=== PATIENT | male | born 1995 | race Hispanic/Latino ===

== ENCOUNTER 2019-09-07 17:57 | Emergency (ER) | payer OTHER, SELFPAY ==
[2019-09-07 18:00] VITALS: BP 150/83; PULSE 67; RESP 16; TEMP 36.2; O2SAT 96; BMI 24.9
--- NOTE | 2019-09-07 19:07 | ED.VISSUMM ---
- ER Visit Summary Date of Service: 09/07/19 Chief Complaint: [Laceration to left index finger] History of Present Illness: The patient is a 24 M [presents to the emergency department after lacerating his finger while at work today. 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 Patient is right-hand dominant. Patient is up-to-date on tetanus.] Physical Examination: [Left hand-patient has a 2 cm laceration over the dorsum of the base of the proximal phalanx of the index finger. It does not appear to involve area over the extensor tendon. He has normal flexion extension of the digit at the MCP, DIP and PIP joints. He is neurovascular intact. Strength checked against resistance and he has good strength.] Test Results: [None indicated] Emergency Department Course and Treatment: [Laceration repair-wound sterilely draped and prepped. Wound cleansed with Shur-Clens and irrigated with copious saline. Using 1% lidocaine total 2 cc used anesthetize the area.] Wound cleansed with Shur-Clens and irrigated with copious saline. Using 5-0 nylon a total of 3 single ruptured sutures placed with good wound edge approximation. Patient tolerated procedure well. Treatment Plan: [Follow-up with corporate care in 10 days for suture removal. Patient advised to return if increasing pain, redness, swelling, or conditions worsen anyway.] Disposition: [Discharged home in stable condition] Impression: [Laceration left index fingers 2 cm-simple repair] This note was generated with [employer] dictation software. It may contain incorrect words, spelling, and punctuation that were not noted in review of the chart prior to signing ED Disposition - Plan for ED Patient: Referrals: NOT,DEFINED [Primary Care Provider] -
--- NOTE | 2019-09-07 19:10 | ED.DEP ---
ED Disposition - Plan for ED Patient: Instructions: LACERATION, Hand Referrals: NOT,DEFINED [Primary Care Provider] - [facility] [GROUP OF PHYSICIANS] - 10 Day for suture removal
== END 2019-09-07 19:33 | disposition home or self-care (01) ==
PROVIDERS: Emergency Provider Emergency Medicine
DX: S61.211A Laceration without foreign body of left index finger without damage to nail, initial encounter (principal); W26.0XXA Contact with knife, initial encounter; Y93.G1 Activity, food preparation and clean up; Y92.9 Unspecified place or not applicable; Y99.0 Civilian activity done for income or pay
CPT/HCPCS: 12001; 99282

== ENCOUNTER 2020-07-11 12:52 | Emergency (ER) | payer OTHER, SELFPAY ==
[2019-09-17 08:05] VITALS: BMI 24.9
[2020-07-11 12:53] VITALS: BP 133/79; PULSE 88; RESP 15; TEMP 37.1; O2SAT 96; BMI 30.9
--- NOTE | 2020-07-11 13:29 | RAD_ITS ---
STUDY: X-RAY - LEFT HAND REASON FOR EXAM: Left hand laceration by a knife extending between the index and middle fingers. TECHNIQUE: 3 view(s) of the hand. COMPARISON: None. FINDINGS: Normal radiocarpal articulation. Normal distal radioulnar joint. Normal visualized carpal bones. Normal carpal articulations Normal carpometacarpal articulation of the thumb. Normal second through fifth carpometacarpal joints. Normal metacarpi. Normal metacarpophalangeal joint of the thumb. Normal interphalangeal joint of the thumb. Normal proximal and distal phalanges of the thumb. Normal metacarpophalangeal joints of the second through fifth fingers. Normal proximal and distal interphalangeal joints of the second through fifth fingers. Normal phalanges of the second through fifth fingers. There is soft tissue swelling. There is no demonstrated radiopaque foreign body. RAD/Hand Min 3 Views IMPRESSION: Soft tissue swelling. Otherwise, unremarkable x-ray examination of the left hand. Electronically Signed: Leobardo Goncalves MD at 13:47 EST Tel , Service support ,
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
[2020-07-11 15:22] LABS: Absolute Lymphocyte Count 2.29 X10^3/uL (0.83-4.51); Absolute Neutrophil Count 4.6 X10^3/uL (2.0-7.7); Basophil# 0.05 X10^3/uL; Basophil% 0.6 % (0-1); Eosinophil# 0.19 X10^3/uL; Eosinophils% 2.4 % (0-5); Hematocrit 46.4 % (40-54); Hemoglobin 16.3 g/dL (13.0-16.5); Lymphocyte # 2.29 X10^3/ul (4.0); Lymphocyte % 29.3 % (19-41); Mean Corp Hgb Conc 35.1 g/dL (32-36); Mean Corpuscular Hgb 32.6 pg (27.0-32.0); Mean Corpuscular Volume 92.8 fL (80-94); Mean Platelet Vol. 9.6 fl (6.2-12.0); Monocyte# 0.61 X10^3/uL; Monocyte% 7.8 % (0-10); NRBC Flagged by Analyzer 0 % (0-5); Neutrophil # 4.62 X10^3/uL (2.7-7.7); Neutrophil % 59.1 % (47-70); Platelet Count 266 K/mm3 (150-450); RBC Distribution Width CV 12.4 % (11.6-14.6); RBC Distribution Width SD 41.9 fl (35.1-43.9); White Blood Count 7.8 K/mm3 (4.4-11.0)
[2020-07-11] MEDS: Cefazolin 1 GM/50 ML BAG IV (15:30)
[2020-07-11 15:31] VITALS: BP 129/77; PULSE 76; RESP 14; O2SAT 97
[2020-07-11 15:36] LABS: Anion Gap 4 (5-15); BUN 11 mg/dL (7-18); BUN/Creat Ratio 11.8 RATIO (10-20); Calcium,Total 8.2 mg/dL (8.5-10.1); Chloride 106 mmol/L (98-107); Creatinine, Serum 0.93 mg/dL (0.70-1.30); EST Glomerular Filtration Rate 105 mL/min (>60); Est Glom Filt Rate - Afr Amer 127 mL/min (>60); Estimated Creatinine Clearance 109.57 ml/min; Glucose 110 mg/dL (74-106); Potassium 3.8 mmol/L (3.5-5.1); Sodium Level 139 mmol/L (136-145)
[2020-07-11 15:42] LABS: Prothrombin Time (Protime)PT. 12.3 SECONDS (11.7-14.9)
[2020-07-11 15:43] LABS: Partial Thromboplast Time 29.1 Seconds (24.1-36.2)
== END 2020-07-11 16:19 | disposition short-term general hospital (02) ==
PROVIDERS: Emergency Provider Emergency Medicine
DX: S61.412A Laceration without foreign body of left hand, initial encounter (principal); S61.211A Laceration without foreign body of left index finger without damage to nail, initial encounter; W26.0XXA Contact with knife, initial encounter; Y93.9 Activity, unspecified; Y92.89 Other specified places as the place of occurrence of the external cause; Y99.0 Civilian activity done for income or pay
CPT/HCPCS: 73130; 80048; 85025; 85610; 85730; 96365; 99285; A4216

== ENCOUNTER 2022-09-01 19:59 | Emergency (ER) | payer OTHER, SELFPAY ==
[2022-09-01 20:00] VITALS: BP 132/98; PULSE 75; RESP 16; TEMP 37; O2SAT 98; BMI 27.8
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
== END 2022-09-01 22:12 | disposition home or self-care (01) ==
PROVIDERS: Emergency Provider Emergency Medicine; Visit Provider Emergency Medicine
DX: T22.251A Burn of second degree of right shoulder, initial encounter (principal); X08.8XXA Exposure to other specified smoke, fire and flames, initial encounter
CPT/HCPCS: 99283